=== PATIENT | male | born 1985 | race Caucasian/White ===

== ENCOUNTER 2020-05-03 10:34 | Emergency (ER) | payer BC ==
[2020-05-03] MEDS ORDERED: KETOROLAC 60 MG/2 ML VIAL IM STA (10:54)
[2020-05-03] MEDS ORDERED: PROMETHAZINE 25 MG/1 ML VIAL IM STA (10:54)
[2020-05-03] MEDS ORDERED: SODIUM CHLORIDE 0.9% 1,000 ML IV STA (10:54)
--- NOTE | 2020-05-03 10:57 | ED Physician Documentation ---
History of Present Illness - Stated complaint Stated Complaint: BACK PX - Chief complaint Chief Complaint: Abd Pain - History obtained from History obtained from: Patient, Family - History of Present Illness Timing: Today Pain level max: 10 Pain level now: 10 - Additonal information Additional information: 34-year-old male presents to the emergency department with left flank pain today. Sudden onset. Similar to prior history of kidney stones. Nothing makes it better or worse. No fevers. No chills. Has had nausea and vomiting throughout the morning. No diarrhea. No constipation. Nothing makes it better or worse. Has not taken anything for the pain today. Review of Systems Ten Systems: 10 systems reviewed and negative Constitutional: denies: Fever, Chills Respiratory: denies: Cough GI: reports: Nausea, Vomiting Skin: denies: Rash Musculoskeletal: denies: Neck pain, Back pain Neurologic: denies: Headache PD PAST MEDICAL HISTORY - Past Medical History Past Medical History: Yes : Kidney stones Musculoskeletal: Chronic back pain - Past Surgical History Past Surgical History: Yes - Present Medications Home Medications: Ambulatory Orders Medication Instructions Recorded Confirmed Doxycycline Hyclate 100 mg PO BID 04/25/15 04/25/15 Ibuprofen 600 mg PO TID #20 tablet 04/26/15 Oxycodone HCl/Acetaminophen 1 each PO Q6H PRN #20 tablet 04/26/15 [Percocet 5-325 mg Tablet] Promethazine [Phenergan] 25 mg PO Q6H PRN #20 tab 04/26/15 Tamsulosin [Flomax] 0.4 mg PO DAILY #5 capsule 04/26/15 Oxycodone HCl/Acetaminophen 1 - 2 each PO Q6H PRN #20 tablet 06/06/15 [Percocet 5-325 mg Tablet] Ibuprofen [Motrin] 800 mg PO Q8H PRN #30 tablet 05/03/20 Ondansetron Odt [Zofran] 4 mg TL Q6H PRN #10 tablet 05/03/20 Oxycodone HCl/Acetaminophen 1 - 2 each PO Q6H PRN #14 tablet 05/03/20 [Percocet 5-325 mg Tablet] Tamsulosin [Flomax] 0.4 mg PO DAILY #14 capsule 05/03/20 - Allergies Allergies/Adverse Reactions: Allergies Allergy/AdvReac Type Severity Reaction Status Date / Time No Known Drug Allergies Allergy Verified 04/25/15 23:15 - Social History Does the pt smoke?: No Smoking Status: Never smoker Does the pt drink ETOH?: Yes Does the pt have substance abuse?: No - Immunizations Immunizations are current?: Yes PD ED PE NORMAL - Vitals Vital signs reviewed: Yes - General General: Alert and oriented X 3, Other (Appears in pain, vomiting) - HEENT HEENT: Moist mucous membranes, Pharynx benign - Neck Neck: Supple, no meningeal sign - Cardiac Cardiac: RRR - Respiratory Respiratory: No respiratory distress, Clear bilaterally - Abdomen Abdomen: Soft, Non tender, Non distended - Back Back: No CVA TTP, No spinal TTP - Derm Derm: Warm and dry - Neuro Neuro: Alert and oriented X 3 Results - Vitals Vitals: Vital Signs - 24 hr 05/03/20 05/03/20 10:42 12:01 Temperature 36.8 C Heart Rate 96 89 Respiratory 20 18 Rate Blood Pressure 177/110 H 135/93 H O2 Saturation 99 99 Oxygen O2 Source Room air - Labs Labs: Laboratory Tests 05/03/20 05/03/20 05/03/20 10:50 11:10 11:10 WBC 6.8 RBC 5.25 Hgb 16.3 Hct 45.0 MCV 85.7 MCH 31.0 MCHC 36.2 H RDW 11.8 L Plt Count 244 MPV 9.3 Neut # (Auto) 3.9 Lymph # (Auto) 1.7 [place] # (Auto) 1.0 Eos # (Auto) 0.1 Baso # (Auto) 0.1 Absolute Nucleated RBC 0.00 Nucleated RBC % 0.0 Sodium 134 L Potassium 3.7 Chloride 99 L Carbon Dioxide 21 Anion Gap 14.0 H BUN 10 Creatinine 0.8 Estimated GFR (MDRD) 111 Glucose 99 Calcium 9.5 Total Bilirubin 0.8 AST 40 ALT 71 H Alkaline Phosphatase 76 Total Protein 7.6 Albumin 4.7 Globulin 2.9 Albumin/Globulin Ratio 1.6 Lipase 30 Urine Color YELLOW Urine Clarity CLEAR Urine pH 6.0 Ur Specific [place] >=1.030 H Urine Protein TRACE Urine Glucose (UA) NEGATIVE Urine Ketones NEGATIVE Urine Occult Blood MODERATE H Urine Nitrite NEGATIVE Urine Bilirubin NEGATIVE Urine Urobilinogen 0.2 (NORMAL) Ur Leukocyte Esterase NEGATIVE Urine RBC 11-25 H Urine WBC 0-3 Ur Squamous Epith Cells RARE Squamous Urine Bacteria None Seen Ur Microscopic Review INDICATED Urine Culture Comments NOT INDICATED - Rads (name of study) Ct abd/pelvis Radiology: Prelim report reviewed, EMP read contemporaneously, See rad report PD MEDICAL DECISION MAKING - ED course Complexity details: reviewed results, re-evaluated patient, considered differential, d/w patient ED course: 34-year-old male with an obstructing 4 mm proximal left ureteral stone. Pain very well controlled in the emergency department with Toradol, Dilaudid, lidocaine. Vomiting resolved with Phenergan. No evidence of coinfection. We will place on pain medication for home and have him follow-up with his doctor for further care. Patient counseled regarding signs and symptoms for which I believe and urgent re-evaluation would be necessary. Patient with good understanding of and agreement to plan and is comfortable going home at this time This document was made in part using voice recognition software. While efforts are made to proofread this document, sound alike and grammatical errors may occur. . Obstructing 4 mm proximal left ureteral stone visualized just distal to the left ureteropelvic junction. There is associated mild left hydroureteronephrosis and perinephric stranding. Recommend excluding clinical symptoms for concurrent infectious uropathy. 2. Hepatic steatosis. 3. Colonic diverticulosis without acute diverticulitis. Departure - Departure Disposition: 01 Home, Self Care Clinical Impression: Ureterolithiasis Condition: Good Instructions: ED Stone Renal W Colic Follow-Up: Provider,Other [Primary Care Provider] - Within 1 week Prescriptions: Tamsulosin [Flomax] 0.4 mg PO DAILY #14 capsule Ibuprofen [Motrin] 800 mg PO Q8H PRN #30 tablet PRN Reason: PAIN &/OR FEVER Oxycodone HCl/Acetaminophen [Percocet 5-325 mg Tablet] 1 - 2 each PO Q6H PRN #14 tablet PRN Reason: pain Ondansetron Odt [Zofran] 4 mg TL Q6H PRN #10 tablet PRN Reason: Nausea / Vomiting Comments: Use the medications as prescribed. Return if you worsen. Drink plenty of fluids. Return if you develop fevers, uncontrolled pain or other new or worsening symptoms. You do have a 4 mm stone in your left ureter. This should pass. Do not drink alcohol or drive while on narcotic pain medicine. Note that many narcotic pain relievers also contain tylenol/acetaminophen. Please ensure that your total dose of acetaminophen from all sources does not exceed 3 grams (3000mg) per day. You may constipated on this medication, take a stool softener such as "Colace" twice a day while you are on it. Also recommend a [id number]-vld-[id number] laxative such as senna or MiraLAX any day that you do not have a bowel movement. If you received narcotic pain medication in the emergency department, do not drive or operate machinery for the next 24 hours.
[2020-05-03 11:02] LABS: BILIRUBIN,URINE NEGATIVE (NEGATIVE); GLUCOSE, URINE (UA) NEGATIVE (NEGATIVE); KETONES,URINE (UA) NEGATIVE (NEGATIVE); LEUKOCYTE ESTERASE, URINE NEGATIVE (NEGATIVE); NITRITE,URINE NEGATIVE (NEGATIVE); OCCULT BLOOD,URINE MODERATE (NEGATIVE); PROTEIN,URINE TRACE mg/dL (NEGATIVE); UROBILINOGEN,URINE 0.2 (NORMAL) E.U./dL (NORMAL)
[2020-05-03 11:03] LABS: CLARITY,URINE CLEAR (CLEAR)
[2020-05-03 11:14] LABS: BACTERIA,URINE None Seen /HPF (None Seen); SQUAMOUS EPITHELIAL CELL,UR RARE Squamous (<= Few)
[2020-05-03 11:22] LABS: BASOPHILS # (AUTO) 0.1 10^3/uL (0.0-0.1); BASOPHILS % (AUTO) 0.7 %; EOSINOPHILS # (AUTO) 0.1 10^3/uL (0.0-0.7); EOSINOPHILS % (AUTO) 1.8 %; HGB - HEMOGLOBIN 16.3 g/dL (14.0-18.0); LYMPHOCYTES # (AUTO) 1.7 10^3/uL (1.5-3.5); LYMPHOCYTES % (AUTO) 24.4 %; MEAN CORPUSCULAR HGB CONC 36.2 g/dL (32.0-36.0); MEAN CORPUSCULAR VOLUME 85.7 fL (80.0-94.0); MEAN PLATELET VOLUME 9.3 fL (7.4-11.4); MONOCYTES % (AUTO) 14.9 %; NEUTROPHILS # (AUTO) 3.9 10^3/uL (1.5-6.6); NEUTROPHILS % (AUTO) 57.9 %; PLT - PLATELET COUNT 244 10^3/uL (130-450); RED BLOOD COUNT 5.25 10^6/uL (4.70-6.10); RED CELL DISTRIBUTION WIDTH 11.8 % (12.0-15.0); WHITE BLOOD COUNT 6.8 x10^3/uL (4.8-10.8)
[2020-05-03 11:34] LABS: ALBUMIN 4.7 g/dL (3.2-5.5); ALBUMIN/GLOBULIN RATIO 1.6 (1.0-2.2); BILIRUBIN,TOTAL 0.8 mg/dL (0.2-1.0); CALCIUM 9.5 mg/dL (8.5-10.3); CREATININE 0.8 mg/dL (0.6-1.2); TOTAL PROTEIN 7.6 g/dL (6.7-8.2)
[2020-05-03] MEDS ORDERED: LIDOCAINE-MPF 2% 9 ML in SODIUM CHLORIDE 0.9% 50 ML IV STA (11:50)
[2020-05-03] MEDS ORDERED: HYDROmorphone 1 MG/ML CARPUJECT IVP STA (11:50)
--- NOTE | 2020-05-03 12:11 | CT Report ---
PROCEDURE: Abdomen/Pelvis WO INDICATIONS: L flank pain, h/o renal stones TECHNIQUE: Noncontrast 5 mm thick sections acquired from the diaphragms to the symphysis. 5 mm coronal and sagi ttal reformats were then performed. For radiation dose reduction, the following was used: automated exposure control, adjustment of mA and/or kV according to patient size. COMPARISON: 04/26/2015. FINDINGS: Image quality: Excellent. ABDOMEN: Lung bases: Mild bibasilar atelectasis. Heart size is normal. Solid organs: Liver and spleen are normal in size. Diffuse hepatic steatosis. Gallbladder is unremar kable. Pancreas is normal in contours. No adrenal nodules. Right kidney is normal in size without hydronephrosis or nephrolithiasis. There is an obstructing 4 mm proximal left ureteral stone visualiz ed just beyond the left ureteropelvic junction. There is associated mild left hydroureteronephrosis w ith associated perinephric stranding. Remainder of the visualized course of the left ureter appears u nremarkable. Peritoneum and bowel: Scattered colonic diverticulosis involving the descending and sigmoid colon. N o acute inflammatory changes. Unenhanced bowel loops demonstrate normal wall thickness and caliber. No free fluid or air. Nodes and vessels: No retroperitoneal or mesenteric adenopathy by size criteria. Aorta and inferior vena cava are normal in caliber. Miscellaneous: No ventral hernias. Small fat-containing umbilical hernia without acute inflammation . PELVIS: Genitourinary: Bladder wall thickness is normal for degree of distention. No urinary bladder stones visualized. Miscellaneous: No inguinal hernias or adenopathy. Bones: No suspicious bony lesions. No acute vertebral body compression fractures. Multilevel thorac ic and lumbar spondylosis. IMPRESSION: 1. Obstructing 4 mm proximal left ureteral stone visualized just distal to the left ureteropelvic heather ction. There is associated mild left hydroureteronephrosis and perinephric stranding. Recommend exclu ding clinical symptoms for concurrent infectious uropathy. 2. Hepatic steatosis. 3. Colonic diverticulosis without acute diverticulitis. Reviewed by: Alfred Laurent MD on 05/03/2020 12:09 PM PDT Approved by: Alfred Laurent MD on 05/03/2020 12:09 PM PDT Station ID: [id number]
[2020-05-03 13:07] VITALS: BP 134/90
== END 2020-05-03 13:05 | disposition home or self-care (01) ==
LOC: ED 10:34
DX: N13.2 Hydronephrosis with renal and ureteral calculous obstruction (principal); K76.0 Fatty (change of) liver, not elsewhere classified; K57.30 Diverticulosis of large intestine without perforation or abscess without bleeding
CPT/HCPCS: 36415; 74176; 80053; 81001; 83690; 85025; 96361; 96365; 96372; 96375; 99284; J1170; J7040; 81003; 87086